=== PATIENT | male | born 1960 | race African-American/Black ===

== ENCOUNTER 2020-01-09 11:21 | Emergency (ER) | payer MEDICAID ==
[~2020-01-09] VITALS: Ht 175.3 cm; Wt 109.0 kg
[2020-01-09] MEDS ORDERED: KETOROLAC 30MG/ML VIAL IM ONE (13:15)
[2020-01-09 14:10] VITALS: BP 139/90
== END 2020-01-09 14:19 | disposition home or self-care (01) ==
LOC: ER 11:21
DX: M25.512 Pain in left shoulder (principal); M79.674 Pain in right toe(s); W18.09XA Striking against other object with subsequent fall, initial encounter; Y93.89 Activity, other specified; Y92.89 Other specified places as the place of occurrence of the external cause; Y99.8 Other external cause status
CPT/HCPCS: 73030; 73502; 73630; 96372; 99284; J1885

== ENCOUNTER 2021-02-15 08:56 | Inpatient (IN) | payer MEDICAID ==
[~2021-02-15] VITALS: Ht 175.3 cm; Wt 109.0 kg
[~2021-02-15 08:56] MED LIST: ASPI-1406 PO; ATOR40TA70 MT; CARB-32 PO; CARV3.1242 PO; CARV6.2548 PO; CEPH500C2 MT; DUTA1CPM4 PO; LORA10TA7 PO; LOSA50TA41 PO
[2021-02-15] MEDS ORDERED: MORPHINE SULFATE 4 MG/ML CPJ (NOT FOR IM USE) IV ONE (09:15)
[2021-02-15 09:57] LABS: HEMATOCRIT. 44.2 % (42.0-52.0); HEMOGLOBIN. 15.2 g/dL (14.0-18.0); MEAN CORPUSCULAR HEMOGLOBIN 29.1 pg (28.0-32.0); MEAN CORPUSCULAR VOLUME 84.4 fL (80.0-94.0); MEAN PLATELET VOLUME 7.1 fl (7.4-10.4); PLATELET 203 x1000/uL (130-400); RED BLOOD CELL COUNT 5.23 mill/uL (4.7-6.1)
[2021-02-15 10:04] LABS: CHLORIDE 116 mEq/L (98-107)
[2021-02-15 10:25] LABS: PLATELET ESTIMATE NORMAL
[2021-02-15] MEDS ORDERED: ONDANSETRON HCL 4MG/2ML INJ IV PRN (13:00)
[2021-02-15] MEDS ORDERED: CLONIDINE 0.1MG TABLET PO PRN (13:00)
[2021-02-15] MEDS ORDERED: IPRATROPIUM/ALBUTEROL 0.5-3(2.5)MG/3ML NEB HHN PRN (13:00)
[2021-02-15] MEDS ORDERED: MORPHINE SULFATE 2 MG/ML CPJ (NOT FOR IM USE) IV PRN (13:00)
[2021-02-15] MEDS ORDERED: ACETAMINOPHEN 325MG TABLET PO PRN (13:00)
[2021-02-15 15:44] VITALS: BP 122/85
[2021-02-15] MEDS ORDERED: PNEUMOCOCCAL 23-VAL P-SAC VAC 0.5 ML IM ONE (15:45)
[2021-02-15 16:00] VITALS: BP 102/69
[2021-02-15] MEDS ORDERED: APIX5TAB PO (17:32)
[2021-02-15] MEDS ORDERED: TRIH2ELI2 PO (17:33)
[2021-02-15] MEDS: APIXABAN 5 MG TABLET PO SCH (17:47)
[2021-02-15 20:00] VITALS: BP 113/68
[2021-02-16] VITALS: BP 112/66
[2021-02-16 04:00] VITALS: BP 128/95
[2021-02-16 07:43] LABS: HEMATOCRIT. 44.6 % (42.0-52.0); HEMOGLOBIN. 14.9 g/dL (14.0-18.0); MEAN CORPUSCULAR HEMOGLOBIN 28.6 pg (28.0-32.0); MEAN CORPUSCULAR VOLUME 85.8 fL (80.0-94.0); MEAN PLATELET VOLUME 9.1 fl (7.4-10.4); PLATELET 200 x1000/uL (130-400); RED CELL DISTRIBUTION WIDTH 15.1 % (11.6-14.6)
[2021-02-16 08:00] VITALS: BP 138/88
[2021-02-16 08:08] LABS: CHLORIDE 107 mEq/L (98-107)
[2021-02-16 08:17] LABS: LDL CHOLESTEROL 59 mg/dL (5-100)
[2021-02-16 08:18] LABS: HDL CHOLESTEROL 45 mg/dL (40-59)
[2021-02-16] MEDS: APIXABAN 5 MG TABLET PO SCH ×2 (09:38→17:22)
[2021-02-16] MEDS: LOSARTAN POTASSIUM 50 MG TABLET PO SCH (09:38)
[2021-02-16 11:15] LABS: PLATELET ESTIMATE NORMAL
[2021-02-16 12:00] VITALS: BP 111/83
[2021-02-16 16:00] VITALS: BP 131/83
[2021-02-16] MEDS: TRIHEXYPHENIDYL HCL 2 MG TABLET PO SCH (17:22)
[2021-02-16] MEDS: CARBIDOPA/LEVODOPA 25/100MG TABLET CR PO SCH (17:22)
[2021-02-16 20:00] VITALS: BP 120/85
[2021-02-16] MEDS: DIPHENHYDRAMINE 50MG/ML VIAL IV PRN (21:58)
[2021-02-17] VITALS: BP 94/59
[2021-02-17] MEDS: DIPHENHYDRAMINE 50MG/ML VIAL IV PRN ×2 (03:52→21:44)
[2021-02-17 04:00] VITALS: BP 120/90
[2021-02-17 06:23] LABS: HEMATOCRIT. 47.1 % (42.0-52.0); HEMOGLOBIN. 15.5 g/dL (14.0-18.0); MEAN CORPUSCULAR HEMOGLOBIN 28.1 pg (28.0-32.0); MEAN CORPUSCULAR VOLUME 85.1 fL (80.0-94.0); MEAN PLATELET VOLUME 8.3 fl (7.4-10.4); PLATELET 209 x1000/uL (130-400); RED BLOOD CELL COUNT 5.54 mill/uL (4.7-6.1)
[2021-02-17 06:30] LABS: CHLORIDE 109 mEq/L (98-107)
[2021-02-17 08:00] VITALS: BP 111/69
[2021-02-17] MEDS: DUTASTERIDE 0.5MG CAPSULE PO SCH (09:48)
[2021-02-17] MEDS: LORATADINE 10MG TABLET PO SCH (09:49)
[2021-02-17] MEDS: TRIHEXYPHENIDYL HCL 2 MG TABLET PO SCH ×2 (09:49→17:47)
[2021-02-17] MEDS: APIXABAN 5 MG TABLET PO SCH ×2 (09:49→17:47)
[2021-02-17] MEDS: TAMSULOSIN HCL 0.4MG SR CAPSULE PO SCH (09:49)
[2021-02-17] MEDS: LOSARTAN POTASSIUM 50 MG TABLET PO SCH (09:50)
[2021-02-17] MEDS: CARBIDOPA/LEVODOPA 25/100MG TABLET CR PO SCH ×3 (09:50→17:48)
[2021-02-17] MEDS: ASPIRIN 81MG EC TABLET PO SCH (09:50)
[2021-02-17 12:00] VITALS: BP 102/64
[2021-02-17 15:59] VITALS: BP 107/74
[2021-02-17 17:26] LABS: PLATELET ESTIMATE NORMAL
[2021-02-17 20:00] VITALS: BP 95/50
[2021-02-17] MEDS ORDERED: ATORVASTATIN CALCIUM 40MG TABLET PO SCH (21:00)
[2021-02-18] VITALS: BP 90/53
[2021-02-18] MEDS: DIPHENHYDRAMINE 50MG/ML VIAL IV PRN (01:58)
[2021-02-18 04:00] VITALS: BP 98/65
[2021-02-18 07:11] LABS: CHLORIDE 108 mEq/L (98-107)
[2021-02-18 08:00] VITALS: BP 115/78
[2021-02-18] MEDS: LORATADINE 10MG TABLET PO SCH (08:28)
[2021-02-18] MEDS: LOSARTAN POTASSIUM 50 MG TABLET PO SCH (08:28)
[2021-02-18] MEDS: CARBIDOPA/LEVODOPA 25/100MG TABLET CR PO SCH ×3 (08:28→16:18)
[2021-02-18] MEDS: TRIHEXYPHENIDYL HCL 2 MG TABLET PO SCH ×2 (08:28→16:18)
[2021-02-18] MEDS: DUTASTERIDE 0.5MG CAPSULE PO SCH (08:28)
[2021-02-18] MEDS: APIXABAN 5 MG TABLET PO SCH ×2 (08:28→16:18)
[2021-02-18] MEDS: TAMSULOSIN HCL 0.4MG SR CAPSULE PO SCH (08:28)
[2021-02-18] MEDS: ASPIRIN 81MG EC TABLET PO SCH (08:28)
[2021-02-18] MEDS: DOCUSATE SODIUM 100MG CAPSULE PO SCH ×2 (11:01→16:18)
[2021-02-18 12:00] VITALS: BP 108/78
[2021-02-18 14:19] LABS: *AMPHETAMINES SCREEN URINE NEGATIVE (NEGATIVE); *BARBITURATES SCREEN URINE NEGATIVE (NEGATIVE)
[2021-02-18 14:20] LABS: *BENZODIAZEPINES SCREEN URINE NEGATIVE (NEGATIVE); *COCAINE SCREEN URINE NEGATIVE (NEGATIVE); METHADONE URINE SCREEN NEGATIVE (NEGATIVE); OPIATES URINE SCREEN NEGATIVE (NEGATIVE)
[2021-02-18 14:21] LABS: CANNABINOID URINE SCREEN NEGATIVE (NEGATIVE)
[2021-02-18 14:22] LABS: PHENCYCLIDINE URINE SCREEN NEGATIVE (NEGATIVE)
[2021-02-18 16:00] VITALS: BP 117/82
[2021-02-18 17:31] VITALS: BP 117/82
== END 2021-02-18 18:20 | disposition home or self-care (01) | DRG 203 ==
LOC: ER 08:56 → ENRESERV 13:48 → 5WST 16:10
PROVIDERS: ADMIT Internal Medicine; ATTEND Internal Medicine
DX: M94.0 Chondrocostal junction syndrome [Tietze] (principal); J96.00 Acute respiratory failure, unspecified whether with hypoxia or hypercapnia; I25.2 Old myocardial infarction; G20 Parkinson's disease; I10 Essential (primary) hypertension; N40.0 Benign prostatic hyperplasia without lower urinary tract symptoms; E78.00 Pure hypercholesterolemia, unspecified; E78.5 Hyperlipidemia, unspecified; F41.9 Anxiety disorder, unspecified; Z79.01 Long term (current) use of anticoagulants; Z82.49 Family history of ischemic heart disease and other diseases of the circulatory system; Z86.711 Personal history of pulmonary embolism; Z86.718 Personal history of other venous thrombosis and embolism; Z86.73 Personal history of transient ischemic attack (TIA), and cerebral infarction without residual deficits; Z91.013 Allergy to seafood; Z79.82 Long term (current) use of aspirin; Z79.899 Other long term (current) drug therapy
CPT/HCPCS: 36415; 71045; 80048; 80053; 80061; 80305; 83880; 84443; 84484; 85025; 85379; 90732; 93005; 93306; 93970; 99285; J1200; J2270